=== PATIENT | female | born 1995 | race African-American/Black ===

== ENCOUNTER 2019-01-17 00:53 | Emergency (ER) | payer OTHER, MEDICAID ==
[~2019-01-17] VITALS: Ht 162.6 cm; Wt 163.3 kg
[2019-01-17 01:04] VITALS: Ht 162.6 cm; Wt 163.3 kg
[2019-01-17 01:52] LABS: BASOPHIL % 0.5 % (0-2)
[2019-01-17 01:53] LABS: PLATELET COUNT 402 x10^3mcL (130-400); RED CELL DISTRIBUTION WIDTH 18.1 % (11.5-14.5)
[2019-01-17 02:26] LABS: CARBON DIOXIDE 27.2 mmol/L (21-32); CHLORIDE SERUM 110 mmol/L (98-107); CREATININE SERUM 0.6 mg/dL (0.6-1.0); GFR1 > 60 mL/min; GLUCOSE SERUM 98 mg/dL (74-106); POTASSIUM SERUM 3.5 mmol/L (3.5-5.1); SODIUM SERUM 145 mmol/L (136-145)
[2019-01-17 02:27] LABS: ALBUMIN 2.8 g/dL (3.4-5.0); ALKALINE PHOSPHATASE 78 U/L (46-116); ALT/SGPT 12 U/L (14-59); AST/SGOT 16 U/L (15-37); BILIRUBIN TOTAL 0.14 mg/dL (0.20-1.00); LIPASE 168 IU/L (73-393); TOTAL PROTEIN, SERUM 7.4 g/dL (6.4-8.2)
[2019-01-17 07:20] VITALS: BP 110/71
== END 2019-01-17 07:50 | disposition home or self-care (01) ==
LOC: ED 00:53
PROVIDERS: Emergency Medicine
DX: K43.9 Ventral hernia without obstruction or gangrene (principal); J45.909 Unspecified asthma, uncomplicated
CPT/HCPCS: 36415